=== PATIENT | female | born 1995 | race Two or more races ===

== ENCOUNTER 2017-09-04 16:10 | Emergency (ER) | payer BC, OTHER ==
[~2017-09-04] VITALS: Ht 172.7 cm; Wt 77.1 kg
[2017-09-04] MEDS ORDERED: ACETAMINOPHEN 325 MG TAB PO ONE ×3 (16:16→16:30)
[2017-09-04 17:04] VITALS: BP 110/56
[2017-09-04] MEDS ORDERED: HYDROcodone-ACET 10/325MG TAB PO ONE (17:30)
[2017-09-04] MEDS ORDERED: cefTRIAXone 1GM/10ml IVPUSH 10 ML IV ONE (19:00)
[2017-09-04] MEDS ORDERED: cefTRIAXone SOD 1,000 MG VL ONE (19:32)
[2017-09-04] MEDS ORDERED: ONDANSETRON HCL 4 MG/2 ML VIAL IV ONE (20:30)
[2017-09-04] MEDS ORDERED: MORPHINE SULF INJ 2 MG/ML SYRINGE 1ML IV ONE (20:30)
[2017-09-04] MEDS ORDERED: diphenhdrAMINE HCL 50 MG/1 ML VL IV ONE (21:30)
[2017-09-04] MEDS ORDERED: NEOMYCIN-BACITRACIN-POLYM 15GM TOP OINT TOP ONE (21:40)
== END 2017-09-04 22:21 | disposition home or self-care (01) ==
LOC: ER 16:10
DX: S52.501A Unspecified fracture of the lower end of right radius, initial encounter for closed fracture (principal); W19.XXXA Unspecified fall, initial encounter; Y93.89 Activity, other specified; Y99.8 Other external cause status; Y92.89 Other specified places as the place of occurrence of the external cause
CPT/HCPCS: 29125; 73060; 73110; 96365; 96375; 99284; J0696; J1200; J2270; J2405